=== PATIENT | female | born 1990 ===

== ENCOUNTER 2016-10-27 09:13 | Inpatient (IN) | payer MEDICAID ==
[2016-10-27] MEDS ORDERED: LR 1,000 ML IV ONE ×2 (09:34→09:37)
[2016-10-27] MEDS ORDERED: LIDOCAINE 1% 2 ML INJ ID PRN (09:37)
[2016-10-27 10:20] LABS: ADD DIFF? NO; ADD MORPH? NO; ADD SCAN? NO; ATYPICAL LYMPHOCYTE FLAG 10 (0-99); FRAGMENT RBC FLAG 0 (0-99); HEMATOCRIT 39.5 % (38.0-47.0); HEMOGLOBIN 13.4 g/dL (12.6-16.3); LEFT SHIFT FLG 0 (0-99); LIPEMIA HEMOLYSIS FLAG 90 (0-99); MEAN CELL HEMOGLOBIN 30.5 pg (27.9-34.1); MEAN CELL HEMOGLOBIN CONCENTR. 33.9 g/dL (32.4-36.7); MEAN CELL VOLUME 89.8 fL (81.5-99.8); MEAN PLATELET VOLUME 11.5 fL (8.7-11.7); PLATELET CLUMPS FLAG 0 (0-99); PLATELET COUNT 213 10^3/uL (150-400)
--- NOTE | 2016-10-27 10:32 | PDGENHP ---
History and Physical History and Physical: Assessment and Plan: 1. Endometriosis determined by laparoscopy Laquita has a long history of severe dysmenorrhea and dyspareunia secondary to endometriosis which has been untreated. She also has a symptomatic rectocele and stress urinary incontinence. We reviewed all conservative and surgical options. Because she has completed her childbearing she is requesting the most definitive treatment available. As result she will be scheduled for a robotic assisted total laparoscopic hysterectomy, excision of all endometriosis, rectocele repair, trans-obturator sling, and cystoscopy. We discussed the risks and benefits of removing her ovaries. 2. Dysmenorrhea 3. Dyspareunia, female 4. Genuine stress incontinence, female 5. Rectocele Subjective: Patient ID: Laquita Lopez is a 26 y.o. female who [facility] to [facility] for endometriosis. MICHELET Rascon is a 26-year-old para 3 woman who presents to discuss endometriosis. She is using tubal ligation for contraception. Her menses were extremely painful when she was a teenager. She then was from age [age]. Afterwards she is Depo-Provera until the age of 25. Over the last 2 years she has had daily pain. She often was unable to move the first 3 days of her cycle. The symptoms have returned. Her cycles are regular each month. The first 3-4 days she has constant pain which begins 1 week before her flow. She feels it is a stabbing central pain with some radiation down her legs as well as her low back. She has dyschezia her entire cycle. She has horrible dyspareunia which has interfered with her relationship with her . Additionally she feels a daily stabbing right lower quadrant pain. Becomes unbearable 2 times per month when she feels she has to drop to her knees. Her first child was born by section because she was found to have a 10 cm left ovarian cyst. She has a midline laparotomy incision. Her next 2 children were born vaginally. She underwent a laparoscopic tubal ligation last year and was told she has endometriosis. She was not given any description of the extent of the disease. Apparently photos were taken. PastMedicalHistory Past Medical History: Diagnosis Date Depression Endometriosis Ovarian cyst PastSurgicalHistory Past Surgical History: Procedure Laterality Date SECTION oophrectomy OVARY REMOVAL Left 02/23/2010 TUBAL LIGATION 2014 CURRENT MEDICATIONS: Current Outpatient Prescriptions Medication Sig HYDROcodone-acetaminophen (NORCO) 5-325 mg Take 1 tablet by mouth every 6 hours as needed for Pain. This med has acetaminophen (APAP). (Patient not taking : Reported on 08/24/2016) ibuprofen (ADVIL,MOTRIN) 200 mg tablet Take 400 mg by mouth daily as needed for Pain for Pain. Reported on 06/23/2016 naproxen (NAPROSYN) 250 mg tablet for Pain. Initial: 500 mg every 12 hours or 250 mg every 6 to 8 hours; max daily dose: Day 1: 1,250 mg; max daily dose other days 1,000 mg (Patient not taking: Reported on 08/24/2016) No current facility-administered medications for this visit. ALLERGIES: Review of patient's allergies indicates no known allergies. I have reviewed, verified and agree with the past medical, surgical, , family, social and ROS history as documented by the RN today. Review of Systems Objective: Vital Signs: Visit Vitals BP 106/64 Pulse 113 Temp 36.9 C (98.4 F) (Temporal Artery) Resp 16 Ht 1.689 m (5' 6.5") Wt 74.8 kg (165 lb) LMP 07/15/2016 SpO2 95% BMI 26.23 kg/m2 Physical Exam Gen: This is an alert, well developed woman in no distress. Neuro: She moves all extremities. Psych: She is appropriate, oriented, with normal affect. Neck: No thyroid enlargement, adenopathy, or tenderness. Lungs: Clear to ascultation, no wheezes or rales. Heart: Regular rate and rhythm without obvious murmurs. Abdomen: Soft, non-tender, without guarding, rebound, or masses. Extremities: No edema or cyanosis. Pelvic: Normal external genitalia. Cervix without lesions or discharge. Uterus normal sized. Adnexa non-tender without enlargement. The introitus is mildly gaping. She has a second-degree cystourethrocele and a mobile urethra. She has obvious leakage of urine with coughing. She has second- degree uterine prolapse and a small second-degree low rectocele. The uterus is mid position with reduced mobility. She has tenderness surrounding the cervix as well as in the posterior cul-de-sac. Both uterosacral ligaments are tender especially on the left with a possible nodule. TIME/COMMUNICATION: I personally spent a total of 50 minutes. Of that 35 minutes was counseling/ coordination of patient's care. See my note above for details. Haroldo Arita MD Board Certified Female Pelvic Medicine and Reconstructive Surgery Director of Minimally Invasive Gynecologic Surgery, [facility] in Minimally Invasive Gynecologic Surgery Designee
[2016-10-27] MEDS ORDERED: ceFAZolin 2 GM/DEXTROSE 100 ML IV ONE (10:45)
[2016-10-27] MEDS ORDERED: PROPOFOL/EMULSION 500 MG/50 ML BOTTLE IV ONE (10:51)
[2016-10-27] MEDS ORDERED: fentaNYL 100 MCG/2 ML INJ ONE ×4 (10:51→14:21)
[2016-10-27] MEDS ORDERED: MIDAZOLAM 2 MG/2 ML VIAL ONE ×2 (10:51→11:31)
[2016-10-27] MEDS ORDERED: BUPIVACAINE 0.25% 30 ML SDV ONE (11:03)
[2016-10-27] MEDS ORDERED: PROPOFOL 200 MG/20 ML VIAL ONE (11:11)
[2016-10-27] MEDS ORDERED: METOCLOPRAMIDE 10 MG/2 ML VIAL ONE (11:14)
[2016-10-27] MEDS ORDERED: KETOROLAC 30 MG/1 ML SDV ONE ×2 (11:14→13:45)
[2016-10-27] MEDS ORDERED: DEXAMETHASONE 4 MG/ML VIAL ONE (11:14)
[2016-10-27] MEDS ORDERED: LIDOCAINE 2% 5 ML SDV ONE (11:14)
[2016-10-27] MEDS ORDERED: RANITIDINE 50 MG/2 ML VIAL ONE (11:14)
[2016-10-27] MEDS ORDERED: ROCURONIUM 50 MG/5 ML VIAL ONE ×3 (11:14→11:55)
[2016-10-27] MEDS ORDERED: ONDANSETRON 4 MG/2 ML VIAL ONE (11:14)
[2016-10-27] MEDS ORDERED: SUGAMMADEX SODIUM 200 MG/2 ML VIAL IVP ONE (11:14)
--- NOTE | 2016-10-27 11:39 | PDANEPAE ---
ANE Past Medical History - Cardiovascular History Hx Hypertension: No Hx Arrhythmias: No Hx Chest Pain: No Hx Coronary Artery / Peripheral Vascular Disease: No Hx CHF / Valvular Disease: No Hx Palpitations: No - Pulmonary History Hx COPD: No Hx Asthma/Reactive Airway Disease: No Hx Recent Upper Respiratory Infection: No Hx Oxygen in Use at Home: No Hx Sleep Apnea: No Sleep Apnea Screening Result - Last Documented: Negative - Neurologic History Hx Cerebrovascular Accident: No Hx Seizures: No Hx Dementia: No Neurologic History Comment: MIGRAINES - Endocrine History Hx Diabetes: No - Renal History Hx Renal Disorders: No - Liver History Hx Hepatic Disorders: No - Neurological & Psychiatric Hx Hx Neurological and Psychiatric Disorders: No - Cancer History Hx Cancer: No - Congenital Disorder History Hx Congenital Disorders: No - GI History Hx Gastrointestinal Disorders: No - Other Health History Other Health History: NEG - Chronic Pain History Chronic Pain: Yes (ABD PAIN) - Surgical History Prior Surgeries: C SECTION. TUBAL LIGATION ANE Review of Systems Review of Systems: - Exercise capacity METS (RN): 4 METS ANE Patient History - Allergies Allergies/Adverse Reactions: No Known Allergies Allergy (Unverified 09/07/16 10:59) - Home Medications Home Medications: Acetaminophen/ASA/Caffeine [Excedrin Tablet (*)] 1 each PO DAILY PRN 09/14/16 [ Last Taken 10/06/16] - NPO status NPO Since - Liquids (Date): 10/26/16 NPO Since - Liquids (Time): 23:15 NPO Since - Solids (Date): 10/26/16 NPO Since - Solids (Time): 21:30 - Smoking Hx Smoking Status: Current every day smoker - Family Anes Hx Family Hx Anesthesia Complications: NEG ANE Labs/Vital Signs - Labs Result Diagrams: 10/27/16 10:05 - Vital Signs Blood Pressure: 103/72 Heart Rate: 89 Respiratory Rate: 16 O2 Sat (%): 97 Height: 168.91 cm Weight: 74.843 kg ANE Physical Exam - Airway Mallampati Score: Class 1 Mouth exam: normal dental/mouth exam - Pulmonary Pulmonary: no respiratory distress, no rales or rhonchi, clear to auscultation - Cardiovascular Cardiovascular: regular rate and rhythym, no murmur, rub, or gallop, pulses symmetric bilaterally - ASA Status ASA Status: II ANE Anesthesia Plan Anesthesia Plan: general endotracheal anesthesia
[2016-10-27] MEDS ORDERED: CALCIUM CHLORIDE 1 GM/10 ML INJ ONE (12:12)
[2016-10-27] MEDS ORDERED: METOCLOPRAMIDE 10 MG/2 ML VIAL IVP PRN (12:51)
[2016-10-27] MEDS ORDERED: LR 500 ML IV PRN (12:51)
[2016-10-27] MEDS ORDERED: PROMETHAZINE HCL 25 MG/ML INJ IVP PRN ×2 (12:51→13:34)
[2016-10-27] MEDS ORDERED: ONDANSETRON 4 MG/2 ML VIAL IVP PRN ×2 (12:51→13:30)
[2016-10-27] MEDS ORDERED: NALOXONE HCL 0.4 MG/ML INJ IVP PRN ×2 (12:51→14:39)
[2016-10-27] MEDS ORDERED: DEXAMETHASONE 4 MG/ML VIAL IVP PRN (12:51)
[2016-10-27] MEDS ORDERED: ALBUTEROL 3 ML DEYVIAL IH PRN (12:51)
[2016-10-27] MEDS ORDERED: HYDROCODONE/APAP 5/325 TAB PO PRN (13:30)
--- NOTE | 2016-10-27 13:37 | POSTOPPROG ---
Post Op Note Date of Operation: 10/27/16 Surgeon: Haroldo Arita Development Intern: Ronit Stephenson Anesthesiologist: Lluvia Anesthesia: GET(General Endotracheal) Pre-op Diagnosis: Endometriosis, dysmenorrhea, stress incontinence, rectocele Post-op Diagnosis: same Procedure: Robotic hyst, RSO, TOT sling, rectocele repair, bilat ureterolysis Findings: Ureters function at end of case Inf/Abcess present in the surg proc area at time of surgery?: No EBL: Minimal Complications: None
[2016-10-27] MEDS ORDERED: MEPERIDINE 25 MG/ML SYR ONE (13:46)
[2016-10-27] MEDS: MEPERIDINE 25 MG/ML SYR IVP PRN ×2 (13:49→14:25)
[2016-10-27] MEDS: fentaNYL 100 MCG/2 ML INJ IVP PRN ×4 (13:58→14:32)
[2016-10-27] MEDS: KETOROLAC 30 MG/1 ML SDV IVP PRN ×2 (14:11→19:45)
[2016-10-27] MEDS ORDERED: HYDROmorphONE/DILAUDID 1 MG/ML INJ ONE (14:37)
--- NOTE | 2016-10-27 14:46 | POSTANESTH ---
Post Anesthetic Evaluation Cardiovascular Status: Normal, Stable Respiratory Status: Normal, Stable Level of Consciousness/Mental Status: Can Participate in Eval, Mildly Sleepy, Arousable Pain Control: Adequate, Prn Tx Ordered Nausea/Vomiting Control: Adequate, Prn Tx Ordered Complications Possibly Related to Anesthesia: None Noted
--- NOTE | 2016-10-27 15:06 | GOP ---
[f rep st] OPERATIVE REPORT DATE OF OPERATION: 10/27/2016 SURGEON: Haroldo Arita MD RAILWAY SIGNAL OPERATOR: Ronit Stephenson CFA. ANESTHESIA: General. PREOPERATIVE DIAGNOSIS: 1. Endometriosis. 2. Dysmenorrhea. 3. Pelvic pain. 4. Stress urinary incontinence. 5. Uterine prolapse. 6. Rectocele. 7. Urinary urgency. POSTOPERATIVE DIAGNOSIS: 1. Endometriosis. 2. Dysmenorrhea. 3. Pelvic pain. 4. Stress urinary incontinence. 5. Uterine prolapse. 6. Rectocele. 7. Urinary urgency. PROCEDURE PERFORMED: 1. Robotic-assisted total laparoscopic hysterectomy, right salpingo- oophorectomy. 2. Bilateral ureterolysis. 3. Excision of extensive endometriosis in the posterior cul-de-sac, bilateral ovarian fossae, and anterior cul-de-sac. 4. Bilateral uterosacral ligament colpopexy. 5. Excision of rectal lesion. 6. Transobturator sling. 7. Rectocele repair with perineorrhaphy. 8. Cystoscopy. FINDINGS: SPECIMENS: 1. Uterus, cervix, right tube and ovary. 2. Pelvic peritoneum with endometriosis. 3. Rectal lesion. ESTIMATED BLOOD LOSS: 30 mL. DESCRIPTION OF PROCEDURE: COMPLICATIONS: None. DISPOSITION: Patient stable to PACU. PROCEDURE: The patient was taken to the operating room where she was identified. General anesthesia was administered and found to be adequate. She was placed in the lithotomy position and prepared and draped in normal sterile fashion. A VCare uterine manipulator was placed into the endometrial cavity and sutured to the cervix. A Estrada catheter was then placed. A 1 cm infraumbilical incision was made with a scalpel. The Veress needle with CO2 gas flowing was advanced into peritoneal cavity. The abdomen was then insufflated with carbon dioxide gas. The 12 mm trocar followed by the laparoscope were then inserted. The upper abdomen was unremarkable. There was no endometriosis on either diaphragm. Two lateral ports were placed on the right and 1 on the left under direct visualization. She then was placed in Trendelenburg position, and the da Yao robot docked on the left side. The instruments were then brought into the abdominal cavity under direct visualization. The patient was found to have endometriosis of the posterior cul-de-sac, the distal rectum. The bilateral ovarian fossa, and the anterior cul-de-sac. The lesion on the distal rectum was first excised. This extended to approximately 30% to 50% through the muscularis. It was left attached to the right posterior cul-de-sac peritoneum. The entire posterior cul-de-sac peritoneum was completely excised all the way up to the cervix. Attention was then turned to the endometriosis on both pelvic sidewalls overlying both ureters. As a result, a bilateral ureterolysis was required. The peritoneum at the pelvic brim was incised. The ureters were gently dissected free. The ureters were dissected from the pelvic brim all the way down to the bladder to lateralize the ureters off the overlying peritoneum with endometriosis. Once this was accomplished, the entire pelvic sidewall peritoneum was excised bilaterally. The anterior leaf of the broad ligament on the right was incised from the round ligament to the bifurcation of the right common iliac vessels. A window was created posteriorly to skeletonize the infundibulopelvic vessels. They were then cauterized and transected. The round ligament was divided. The anterior leaf of the broad ligament on the right was incised over the right uterine vessels and across the cervix. The bladder was densely adherent to the cervix and lower uterine segment from her prior section. The bladder was gently dissected free. The right uterine vasculature was then cauterized and transected. The patient had a previous left salpingo-oophorectomy. The left round ligament was divided. The left uterine vasculature was then cauterized and transected. A circumferential colpotomy incision was then made with the hot russ, and all specimens were removed through the vagina. The vaginal cuff was then closed with a running suture of 0 V-Loc 180. A bilateral uterosacral ligament colpopexy was performed by attaching the lateral aspect of the vaginal cuff to the ipsilateral uterosacral ligaments near their insertion into the coccygeal- sacrospinous ligament complex. The pelvis was then copiously irrigated with sterile saline, and hemostasis was present. The robot was then undocked. The fascia closed with 0 Vicryl, skin with 4-0 Monocryl and surgical adhesive. Attention was then turned to the sling portion of the procedure. A mid urethral incision was made with a scalpel. Tunnels were created bilaterally out to the obturator internus muscles. Skin incisions were made over the obturator notches. The Halo trocar was placed through the left skin incision, redirected around the ischial pubic rami, and the vaginal incision using a vaginal finger as a guide. The lateral sulci were examined, and no evidence of vaginal injury had occurred. The sling was then attached and brought out along the same course. The exact same procedure was performed on the patient's right side. The sling was then adjusted to allow a small mid urethral gap. The vaginal exam was closed with 2-0 Vicryl, skin with 4-0 Monocryl. Cystoscopy was then performed. Both ureters had vigorous jets of urine. There was no evidence of bladder nor urethral injury seen. No mesh nor suture was seen within the bladder nor urethra. No other obvious cause of her urgency was seen. Attention was then turned to the rectocele repair. A transverse incision was made along the perineal body. The posterior vaginal epithelium was undermined with the Metzenbaum scissors and incised sagittally. The epithelium was gently dissected off the underlying rectovaginal connective tissue. The connective tissue was plicated with interrupted sutures of 0 Vicryl. The perineorrhaphy was then performed by plicating the bulbous spongiosis and transverse perineal muscles in the midline. The excess epithelium was then trimmed and closed with a running 3-0 Vicryl suture. Vaginal packing was then placed. Anesthesia was reversed. The patient taken to the PACU awake, in stable condition. /[id number]/MODL MTDD
[2016-10-27] MEDS: HYDROmorphONE/DILAUDID 1 MG/ML INJ IVP PRN ×3 (15:09→15:46)
[2016-10-27] MEDS: DIAZEPAM 10 MG/2 ML SYR IVP PRN ×2 (17:15→23:34)
[2016-10-27] MEDS: DOCUSATE SODIUM 100 MG CAP PO SCH (19:44)
[2016-10-27] MEDS: SIMETHICONE 80 MG TAB CHEW PO SCH ×2 (19:45→21:46)
[2016-10-27] MEDS: OXYCODONE/APAP 5/325 TAB PO PRN (21:46)
[2016-10-28] MEDS: KETOROLAC 30 MG/1 ML SDV IVP PRN ×2 (02:18→08:25)
[2016-10-28] MEDS: LR 1,000 ML IV SCH ×3 (02:30→17:10)
[2016-10-28] MEDS: HYDROmorphONE/DILAUDID 1 MG/ML INJ IVP PRN ×5 (03:18→15:18)
[2016-10-28 05:25] LABS: % IMMATURE GRANULYOCYTES 0.9 % (0.0-1.1); ABSOLUTE IMMATURE GRANULOCYTES 0.24 10^3/uL (0.00-0.10); ADD DIFF? NO; ADD MORPH? NO; ADD SCAN? NO; ATYPICAL LYMPHOCYTE FLAG 0 (0-99); FRAGMENT RBC FLAG 20 (0-99); HEMOGLOBIN 7.9 g/dL (12.6-16.3); LEFT SHIFT FLG 0 (0-99); LIPEMIA HEMOLYSIS FLAG 80 (0-99); MEAN CELL HEMOGLOBIN 30.3 pg (27.9-34.1); MEAN CELL HEMOGLOBIN CONCENTR. 32.9 g/dL (32.4-36.7); PLATELET CLUMPS FLAG 40 (0-99); PLATELET COUNT 212 10^3/uL (150-400); RED BLOOD CELL COUNT 2.61 10^6/uL (4.18-5.33); RED CELL DISTRIBUTION WIDTH 13.1 % (11.5-15.2)
[2016-10-28 07:54] LABS: % IMMATURE GRANULYOCYTES 0.9 % (0.0-1.1); ABSOLUTE IMMATURE GRANULOCYTES 0.24 10^3/uL (0.00-0.10); ADD DIFF? NO; ADD MORPH? NO; ADD SCAN? NO; ATYPICAL LYMPHOCYTE FLAG 10 (0-99); FRAGMENT RBC FLAG 0 (0-99); HEMATOCRIT 21.7 % (38.0-47.0); HEMOGLOBIN 7.2 g/dL (12.6-16.3); LEFT SHIFT FLG 0 (0-99); LIPEMIA HEMOLYSIS FLAG 80 (0-99); MEAN CELL HEMOGLOBIN 30.6 pg (27.9-34.1); MEAN CELL HEMOGLOBIN CONCENTR. 33.2 g/dL (32.4-36.7); MEAN CELL VOLUME 92.3 fL (81.5-99.8); MEAN PLATELET VOLUME 11.2 fL (8.7-11.7); PLATELET CLUMPS FLAG 10 (0-99); PLATELET COUNT 312 10^3/uL (150-400); RED BLOOD CELL COUNT 2.35 10^6/uL (4.18-5.33); RED CELL DISTRIBUTION WIDTH 13.2 % (11.5-15.2)
[2016-10-28] MEDS ORDERED: IOPAMIDOL (ISOVUE-300) 100 ML BTL ONE (08:21)
[2016-10-28] MEDS: OXYCODONE/APAP 5/325 TAB PO PRN ×4 (08:25→20:42)
--- NOTE | 2016-10-28 09:49 | SOAPPROG ---
SOAP Progress Note Assessment/Plan: Assessment: POD #1 s/p robotic hyst, endometriosis, TOT sling, and rectocele. Post op intraperitoneal bleed, suspect uterine artery started bleeding. Stable now and pain controlled. Transfuse 2 units now, repeat H/H 1 hour after transfusion. Likely can avoid return to OR or interventional radiology, but will follow serial blood counts and vitals. Situation explained to patient and . No discharge today. Plan: 10/28/16 09:46 Subjective: Laquita is complaining of pain overnight. This morning she is weak, tired, and lightheaded when upright. I was called earlier for reduced BP and tachycardia. Given her Hb is ordered the STAT team and transfusion of 2 units of blood. She has received an IVF bolus and is feeling somewhat better. Objective: Vital Signs Temp Pulse Resp BP Pulse Ox 36.4 C 135 H 16 70/38 L 99 10/28/16 07:39 10/28/16 07:39 10/28/16 03:00 10/28/16 07:39 10/28/16 07:39 Laboratory Results 10/28/16 07:45 10/27/16 10/28/16 10/29/16 05:59 05:59 05:59 Intake Total 2250 Output Total 1000 Balance 1250 - Pending Discharge Pending Discharge Within 24 Hours: No Pending Discharge Within 48 Hours: No Physical Exam - Physical Exam General Appearance: WD/WN, alert, no apparent distress Respiratory: lungs clear Cardiac/Chest: tachycardia, No regular rate, rhythm Abdomen: non-tender (Incisions clean, dry, and intact.), soft ICD10 Worksheet Patient Problems: Problems Problem Status Onset Endometriosis determined by laparoscopy Acute - ICD10 Problem Qualifiers (1) Endometriosis determined by laparoscopy
[2016-10-28] MEDS: DIAZEPAM 10 MG/2 ML SYR IVP PRN (10:15)
[2016-10-28] MEDS ORDERED: ACETAMINOPHEN 325 MG TAB PO PRN (10:23)
[2016-10-28] MEDS: DOCUSATE SODIUM 100 MG CAP PO SCH ×3 (11:25→20:19)
[2016-10-28] MEDS: SIMETHICONE 80 MG TAB CHEW PO SCH ×4 (11:26→23:20)
[2016-10-28 16:27] LABS: HEMATOCRIT 24.3 % (38.0-47.0); HEMOGLOBIN 8.3 g/dL (12.6-16.3)
[2016-10-28 19:34] LABS: HEMATOCRIT 23.7 % (38.0-47.0)
[2016-10-28] MEDS: HYDROmorphONE/DILAUDID 2 MG TAB PO PRN (20:19)
[2016-10-28 23:46] LABS: HEMATOCRIT 24.3 % (38.0-47.0); HEMOGLOBIN 8.2 g/dL (12.6-16.3)
[2016-10-29] MEDS: HYDROmorphONE/DILAUDID 2 MG TAB PO PRN ×6 (00:21→22:05)
[2016-10-29] MEDS: OXYCODONE/APAP 5/325 TAB PO PRN ×6 (00:44→22:05)
[2016-10-29 06:40] LABS: HEMATOCRIT 20.9 % (38.0-47.0); HEMOGLOBIN 7.2 g/dL (12.6-16.3)
[2016-10-29] MEDS: DIAZEPAM 10 MG/2 ML SYR IVP PRN (08:07)
[2016-10-29] MEDS: DOCUSATE SODIUM 100 MG CAP PO SCH ×2 (08:33→22:04)
[2016-10-29] MEDS: SIMETHICONE 80 MG TAB CHEW PO SCH ×3 (08:33→22:05)
--- NOTE | 2016-10-29 12:02 | ASMTCMCOM ---
CM Note CM Note Notes: SW consult requested on pt after stat team call yesterday due to pt's loss of blood. RN felt pt continues to have some trauma since yesterday's event. Met with pt who was very tearful. Pt getting a blood transfusion and she stated she just wanted it to stop. Pt also stated her had left early this morning, stating he couldn't handle the blood anymore. Pt upset about his attitude and wanted her at the hospital. Offered to get pt information on counseling resources in [place]. Pt interested but stated she and her had weathered other situations in the past. Pt glad to have someone just to listen. Per pt, NORMAN Massey, has been very supportive to pt as well. Pt's other concerns were the fact that she is now in menopause following her surgery. She stated she has questions for Dr Arita when he meets with her later today. provided pt a list of some marriage counseling services located in [place]. SW available if needed. Date Signed: 10/29/2016 12:01 PM Electronically Signed By:Tiffanie Moreno LCSW
[2016-10-29] MEDS ORDERED: MAGNESIUM HYDROXIDE 30 ML UDCUP PO PRN (15:20)
[2016-10-29] MEDS ORDERED: DIAZEPAM 5 MG TAB PO PRN (15:20)
[2016-10-29 15:27] LABS: HEMATOCRIT 28.5 % (38.0-47.0); HEMOGLOBIN 9.9 g/dL (12.6-16.3)
--- NOTE | 2016-10-29 15:27 | SOAPPROG ---
SOAP Progress Note Assessment/Plan: Assessment: POD #1 s/p robotic hyst, endometriosis, TOT sling, and rectocele. Post op intraperitoneal bleed, suspect uterine artery started bleeding. Stable now and pain controlled. Transfuse 2 units now, repeat H/H 1 hour after transfusion. Likely can avoid return to OR or interventional radiology, but will follow serial blood counts and vitals. Situation explained to patient and . No discharge today. POD#2 Doing better overall. Vital remain stable Plan: 10/28/16 09:46 10/29/16 15:27 Will check serial H/H. Estrada removed. Ambulate. Explained to patient that I cannot discharge her until blood count remains stable. Will repeat in several hours. Will start HRT now. Discharge plan, meds, and instructions reviewed. Subjective: Feeling much better after 2 units PRBC yesterday. Pain much better controlled. Analy gen diet. This AM Hb dropped to 7.2 so I transfused an additional 2 units today. Post transfusion H/H just drawn. Pt anxious for discharge. Objective: Vital Signs Temp Pulse Resp BP Pulse Ox 37.1 C 100 16 109/69 95 10/29/16 13:28 10/29/16 13:28 10/29/16 13:28 10/29/16 13:28 10/29/16 13:28 10/28/16 10/29/16 10/30/16 05:59 05:59 05:59 Intake Total 2250 2400 Output Total 1000 2450 Balance 1250 -50 - Pending Discharge Pending Discharge Within 24 Hours: Yes Pending Discharge Date: 10/30/16 Pending Discharge Time: 11:00 Physical Exam - Physical Exam General Appearance: WD/WN, alert, no apparent distress Respiratory: lungs clear Cardiac/Chest: regular rate, rhythm Abdomen: normal bowel sounds, soft Skin: normal color (Incisions clean, dry, and intact), warm/dry ICD10 Worksheet Patient Problems: Problems Problem Status Onset Endometriosis determined by laparoscopy Acute - ICD10 Problem Qualifiers (1) Endometriosis determined by laparoscopy
[2016-10-29] MEDS ORDERED: ESTRADIOL 1 MG TAB PO SCH (15:30)
[2016-10-29] MEDS ORDERED: NORETHINDRONE ACET 5 MG TAB PO SCH (15:30)
[2016-10-29] MEDS ORDERED: POLYETHYLENE GLYCOL 3350 17 GM PKT PO SCH (15:30)
[2016-10-29 19:13] LABS: HEMATOCRIT 28.8 % (38.0-47.0); HEMOGLOBIN 9.9 g/dL (12.6-16.3)
[2016-10-29 19:15] VITALS: RESP 14
[2016-10-29 20:26] VITALS: BP 108/68; PULSE 114; TEMP 98.5; O2SAT 90
[2016-10-29 22:07] LABS: HEMATOCRIT 29.6 % (38.0-47.0)
--- NOTE | 2016-11-01 10:58 | GDS ---
[f rep st] DISCHARGE SUMMARY DISCHARGE DIAGNOSES: 1. Endometriosis. 2. Dysmenorrhea. 3. Rectocele. 4. Stress urinary incontinence. 5. Postoperative anemia. PROCEDURES: 1. Robotic-assisted total laparoscopic hysterectomy, right salpingo-oophorectomy. 2. Bilateral ureterolysis. 3. Excision of endometriosis. 4. Uterosacral ligament colpopexy. 5. Excision of rectal lesion. 6. Transobturator sling. 7. Rectocele repair. 8. Cystoscopy. 9. Four unit packed red blood cell transfusion. HISTORY: The patient is a 26-year-old female with pelvic pain secondary to endometriosis, as well as stress urinary incontinence and a symptomatic rectocele. She was taken to the operating room on , where she underwent the above-mentioned procedures without complications. Her hospital course was complicated by postop anemia. Likely one of her uterine arteries bled overni ght. She was transfused 2 units of packed red blood cells the morning after surgery. She had a slig ht decrease in hemoglobin during the day; however, dropped again overnight. I elected to give her 2 more units on the morning of postoperative day #2. The remainder of the day her hemoglobin remained stable and actually increased some. The patient was anxious to be discharged home. She was discharg ed home at approximately 10 p.m. on postoperative day #2 in good condition. MEDICATIONS: Included [place] and ibuprofen for pain. FOLLOWUP: She is to follow up in the office a week after discharge. /[id number]/MODL
== END 2016-10-29 23:00 | disposition home or self-care (01) | DRG 742 ==
LOC: F3E 09:13 → FOB 16:06 → OBSVTOIN 10-28 09:50
PROVIDERS: ADMIT Obstetrics & Gynecology; ATTEND Obstetrics & Gynecology
PROC: 0DBP7ZZ Excision of Rectum, Via Natural or Artificial Opening (ICD-10-PCS; principal; 2016-10-27 10:45)
PROC: 0WBN4ZZ Excision of Female Perineum, Percutaneous Endoscopic Approach (ICD-10-PCS; principal; 2016-10-27 10:45)
PROC: 0UT94ZZ Resection of Uterus, Percutaneous Endoscopic Approach (ICD-10-PCS; principal; 2016-10-27 10:45)
PROC: 0TUC4JZ Supplement Bladder Neck with Synthetic Substitute, Percutaneous Endoscopic Approach (ICD-10-PCS; principal; 2016-10-27 10:45)
PROC: 0TN64ZZ Release Right Ureter, Percutaneous Endoscopic Approach (ICD-10-PCS; principal; 2016-10-27 10:45)
PROC: 0UT54ZZ Resection of Right Fallopian Tube, Percutaneous Endoscopic Approach (ICD-10-PCS; principal; 2016-10-27 10:45)
PROC: 8E0W4CZ Robotic Assisted Procedure of Trunk Region, Percutaneous Endoscopic Approach (ICD-10-PCS; principal; 2016-10-27 10:45)
PROC: 0UT04ZZ Resection of Right Ovary, Percutaneous Endoscopic Approach (ICD-10-PCS; principal; 2016-10-27 10:45)
PROC: 0TN74ZZ Release Left Ureter, Percutaneous Endoscopic Approach (ICD-10-PCS; principal; 2016-10-27 10:45)
PROC: 30233N1 Transfusion of Nonautologous Red Blood Cells into Peripheral Vein, Percutaneous Approach (ICD-10-PCS; 2016-10-29)
DX: N80.3 Endometriosis of pelvic peritoneum (principal); D62 Acute posthemorrhagic anemia; N94.6 Dysmenorrhea, unspecified; N39.3 Stress incontinence (female) (male); N80.5 Endometriosis of intestine; N81.4 Uterovaginal prolapse, unspecified
CPT/HCPCS: C1771; G0378; J0690; J1100; J1170; J1885; J2250; J2405; J2704; J2765; J2780; J3010; P9016; Q9967